=== PATIENT | male | born 1980 | race Caucasian/White ===

== ENCOUNTER 2019-11-09 17:18 | Emergency (ER) | payer OTHER, SELFPAY ==
[2019-11-09 17:32] VITALS: BP 117/93; PULSE 96; RESP 20; TEMP 37.1; O2SAT 100
--- NOTE | 2019-11-09 18:04 | ED.GENADULT ---
HPI - General Adult General Chief complaint: Upper Respiratory Infection Stated complaint: sore throat/weak/cough Time Seen by Provider: 11/09/19 18:04 Source: patient and RN notes reviewed Mode of arrival: ambulatory Limitations: no limitations History of Present Illness HPI narrative: 38-year-old male presents with complaints of sore throat, fatigue, and nausea for 5-6 days. [place] and Ibuprofen, last 3 days ago without relief. No treatment today. Shantanu is concerned since his spouse was diagnosis with Influenza B 1 day ago. No high fevers, drooling, neck or throat swelling. Pain is bilateral. Hurts to swallow. No rhinorrhea. Nasal congestion. No voice change. Exacerbating factors consist of eating, drinking, and vapes. Nausea without vomiting or abdominal pain. Tolerating liquids well. Denies chills, dyspnea, difficulty swallowing, jaw pain, dental pain, facial pain, foreign body sensation, and rash. Remains active. Some parts of this dictation were generated by voice recognition software and may contain typographical and/or grammatical inaccuracies. Related Data Allergies Allergy/AdvReac Type Severity Reaction Status Date / Time No Known Allergies Allergy Verified 11/09/19 18:12 Review of Systems Review of Systems: Narrative: CONSTITUTIONAL: Denies fever, chills, sweats. Complains of fatigue. EYES: Denies visual changes, redness, discharge. ENT: Denies rhinorrhea, otalgia. Complains of sore throat, congestion. CARDIOVASCULAR: Denies chest pain, palpitations, edema. RESPIRATORY: Denies dyspnea, wheezing. Complains of dry cough. GASTROINTESTINAL: Denies abdominal pain, vomiting, diarrhea. Complains of nausea. GENITOURINARY: Denies dysuria, hematuria, abnormal discharge SKIN: Denies rash or itching. MUSCULOSKELETAL: Denies acute back pain, joint pain, or myalgia. NEUROLOGIC: Denies numbness or focal weakness. PSYCHIATRIC: Denies anxiety or depression All other systems reviewed and negative. [facility] Past Medical History Medical History (Updated 11/13/19 @ 00:04 by LESLY Boland) No significant past medical history Surgical History Surgical History (Updated 11/13/19 @ 00:04 by LESLY Boland) No significant past surgical history Social History Social History (Updated 11/13/19 @ 00:10 by CAMERON Boland Smoking status: Former smoker Tobacco type: e-cigarettes Comments At time of signature, agree with nurse past medical, surgical, social, and family history. There is no relevant family history pertinent to the presenting complaint. Exam Narrative: Exam Narrative: GENERAL: This is a well-nourished, well-developed patient, in no apparent distress. Speaks in full sentences without deficits and ambulates with steady gait without dyspnea. HEAD: normocephalic, atraumatic. EYES: PERRL. Sclera clear/white. Vision is grossly intact. EARS: External ears normal, auditory canals clear and without drainage, TMs normal without perforation. Hearing grossly intact. NOSE: External nose normal with no obvious nasal discharge, nares with moderate redness and enlarge turbinates, no rhinorrhea. Mouth: moist mucous membranes. THROAT: Mucous membranes moist, posterior pharynx with PND, mild erythema, no exudate, and normal tonsils, no drainage, no concern for Peritonsillar abscess. No drooling, trismus, or neck swelling. NECK: Neck supple, non-tender without lymphadenopathy, masses or thyromegaly. CARDIOVASCULAR: Regular rate and rhythm without murmurs, gallops, or rubs. RESPIRATORY: Clear to auscultation. Breath sounds equal bilaterally. No wheezes, rales, or rhonchi. GASTROINTESTINAL: Abdomen soft, non-tender, nondistended. Bowel sounds are active. No hepato-splenomegaly, or palpable masses. No guarding. SKIN: warm, intact with no suspicious lesions or rash, good texture and turgor. NEURO: awake, alert, and oriented to person, place and time. There were no obvious focal neurolo
== END 2019-11-09 18:23 | disposition home or self-care (01) ==
PROVIDERS: Emergency Provider Nurse Practitioner Family
DX: J02.9 Acute pharyngitis, unspecified (principal); F17.200 Nicotine dependence, unspecified, uncomplicated
CPT/HCPCS: 87880; 99203; G0463

== ENCOUNTER 2019-11-17 17:15 | Emergency (ER) | payer OTHER, SELFPAY ==
[2019-11-17 17:28] VITALS: BP 132/86; PULSE 97; RESP 18; TEMP 37; O2SAT 100
--- NOTE | 2019-11-17 17:36 | ED.URI ---
HPI - URI/Sore Throat General Chief Complaint: Upper Respiratory Infection Stated Complaint: fast weight loss/cough Time Seen by Provider: 11/17/19 17:36 Source: patient and RN notes reviewed History of Present Illness HPI Narrative: Patient is a 38-year-old male that presents the urgent care with complaints of weight loss and cough. Patient states he was diagnosed with strep on November 09 and has lost 15 pounds in the last 2 weeks. Patient states that he has not been eating and drinking 2 hours before and after the medication. Patient states he has been very fatigued but also reports of having loss of appetite and not eating well. Patient states he does have bouts of dizziness from laying to sitting/standing. Patient states that he saw his PCP the Thursday prior to his strep diagnosis and they did no testing at that time. Patient states that the weight loss started prior to the strep diagnosis. Patient reports of pushing fluids and does have days where he feels better . Patient appears very anxious with a flat affect. No other acute complaints. No acute distress noted. Patient read the plan of care. Related Data Allergies Allergy/AdvReac Type Severity Reaction Status Date / Time No Known Allergies Allergy Verified 11/17/19 17:34 Review of Systems Review of Systems: Narrative: CONSTITUTIONAL: Denies fever, chills, or sweats. Reports of weight loss and fatigue EYES: Denies visual changes, redness, or discharge. ENT: Denies rhinorrhea, congestion, sore throat, or otalgia. CARDIOVASCULAR: Denies chest pain, palpitations, or edema. RESPIRATORY: Reports of nonproductive cough without dyspnea GASTROINTESTINAL: Reports of intermittent nausea with some abdominal discomfort at times GENITOURINARY: Denies dysuria or hematuria. SKIN: Denies rash or itching. MUSCULOSKELETAL: Denies back pain, joint pain, or myalgia. NEUROLOGIC: Denies headache, numbness, or weakness. Reports of intermittent dizziness All other systems reviewed are negative, except as documented in HPI. [facility] Past Medical History Medical History (Updated 11/17/19 @ 18:25 by LESLY Wagner) No significant past medical history Surgical History Surgical History (Updated 11/13/19 @ 00:04 by LESLY Boland) No significant past surgical history Social History Social History (Updated 11/13/19 @ 00:10 by LESLY Boland) Smoking status: Former smoker Tobacco type: e-cigarettes Comments At the time of my signature, I reviewed and agree with the nursing past medical, surgical, social, and family history. There is no relevant family history pertinent to the patient complaint. Exam Narrative: Exam Narrative: GENERAL: This is a well-nourished, well-developed patient, in no apparent distress. HEAD: normocephalic, atraumatic. EYES: PERRL. Sclera clear/white. Vision is grossly intact. EARS: External ears normal, auditory canals clear and without drainage, bilateral cerumen noted, unable to visualize left TM due to cerumen, right TM normal without perforation. Hearing grossly intact. NOSE: External nose normal with no obvious nasal discharge, nares without redness, no rhinorrhea. THROAT: Mucous membranes moist, mild erythema of the posterior oropharynx without exudate or ulceration. NECK: Neck supple, non-tender without lymphadenopathy CARDIOVASCULAR: Regular rate and rhythm without murmurs, gallops, or rubs. RESPIRATORY: Clear to auscultation. Breath sounds equal bilaterally. No wheezes, rales, or rhonchi. Gastrointestinal: Mild diffuse tenderness. Bowel sounds within normal limits. No splenomegaly palpated SKIN: warm, intact with no suspicious lesions or rash, good texture and turgor. NEURO: awake, alert, and oriented to person, place and time. There were no obvious focal neurologic abnormalities. EXTREMITIES: No clubbing, cyanosis, or edema. Course Vital Signs Vital signs: Vital Signs Temperature 98.6 F 11/17/19 17:28 Pulse Rate 9
[2019-11-17 17:52] LABS: Glucose Point of Care 90 (65-105)
== END 2019-11-17 18:33 | disposition home or self-care (01) ==
PROVIDERS: Emergency Provider Nurse Practitioner Family
DX: F41.8 Other specified anxiety disorders (principal); R63.4 Abnormal weight loss; Z87.891 Personal history of nicotine dependence
CPT/HCPCS: 82948; 86308; 87081; 87880; 99213; G0463

== ENCOUNTER 2019-11-20 18:30 | Emergency (ER) | payer OTHER, SELFPAY ==
[2019-11-20 18:32] VITALS: BP 136/90; PULSE 98; RESP 20; TEMP 36.9; O2SAT 100
--- NOTE | 2019-11-20 18:53 | ED.GENADULT ---
HPI - General Adult General Chief complaint: Unspecified Stated complaint: feeling unwell for 3 weeks,weight loss Time Seen by Provider: 11/20/19 18:46 Source: patient and RN notes reviewed Mode of arrival: other Limitations: no limitations History of Present Illness HPI narrative: Pt is a 38 y/o male who presents to the ED with c/o feeling unwell for the past three weeks. Pt notes that he went to get a massage with a happy ending while in [place], [place]. He notes that the masseuse only used her hand only. He notes that her hand brushed over his penis. Pt states that he did have an erection and did not ejaculate. Pt denies vaginal, anal, and oral intercourse with this therapist or anyone other than his . Pt notes that he began to have penile burning sensations and thought he had Herpes, but the tests were negative. He never had any lesions on his penis. Pt was started on Escitalopram and took the medication for three days. Pt notes that this was not his first massage with a happy ending. His last was massage was in February 2019. He notes that he had lesions on his back and he began to feel unwell after the massage. He states that his sx after the first massage did not last as long as his sx currently. He notes that he went to his PCP for additional blood and urine tests that all came back negative. He was recently dx with Strep and was prescribed Penicillin. He notes that he finished the course. Pt has a hx of anxiety, but he denies his anxiety causing his sx. He notes that he has a hx of dermatitis on his genital area. Pt also reports dizziness, cough, uneasy, fluid in right ear, poor appetite, nausea, vomiting, tongue thickness with white spots, and weight loss, but denies a fever, rash, testicle pain, dysuria, and penile discharge. MD complaint: Feeling Unwell Onset (ago): week(s) (3) Pain Consistency: other (none) Relieving factors: none Associated symptoms: cough, loss of appetite, nausea/vomiting and other ( dizziness, uneasy, fluid in right ear, tongue thickness with white spots, weight loss) Related Data Allergies Allergy/AdvReac Type Severity Reaction Status Date / Time No Known Allergies Allergy Verified 11/17/19 17:34 Review of Systems Review of Systems: Narrative: CONSTITUTIONAL: Reports feeling uneasy, poor appetite, and weight loss. Denies fever. ENT: Reports fluid in right ear, tongue thickness with white spots RESPIRATORY: Reports cough GASTROINTESTINAL: Reports nausea, vomiting, GENITOURINARY: Denies testicle pain, penile discharge, and dysuria. SKIN: Denies rash. NEUROLOGIC: Reports dizziness All systems reviewed & are unremarkable except as noted in HPI and below PMFSH Past Medical History Medical History (Updated 11/20/19 @ 21:18 by Elizabeth Schrader MD) No significant past medical history Surgical History Surgical History (Updated 11/13/19 @ 00:04 by LESLY Boland) No significant past surgical history Social History Social History (Updated 11/13/19 @ 00:10 by LESLY Boland) Smoking status: Former smoker Tobacco type: e-cigarettes Exam Narrative: Exam Narrative: GENERAL: Well-appearing, well-nourished, and in no acute distress. HEAD: Normocephalic, atraumatic. EYES: PERRLA and EOMI. ENT: Nares clear, no rhinorrhea or epistaxis. Mucous membranes moist. Tongue normal. No exudate, sores, lesions, or erythema. Left ear clear. Narrow ear canals. Right ear infection with erythema. No perforation. NECK: Supple. CHEST: Clear to auscultation. No respiratory distress. HEART: Regular rate and rhythm. No murmur heard. Normal peripheral pulses. ABDOMEN: Soft, nontender, nondistended, normal active bowel sounds. No lymph nodes present. GENITOURINARY: Cirumcised. No lesions on penis. No erythema. No hernia. No inguinal lympadenopathy. No testicular tenderness. EXTREMITIES: Normal range of motion. No edema. BACK: No lesions. SKIN: Warm, dry, no rash. NEURO: No focal deficits. Alert
[2019-11-20 19:51] LABS: Hematocrit 44.7 % (42.0-52.0); Hemoglobin 14.8 g/dL (14.0-18.0); Mean Corpuscular HGB Conc 33.1 g/dl (32-36); Mean Corpuscular Hemoglobin 28.8 pg (26-34); Mean Platelet Volume 10.1 fl (7.4-10.4); Platelet Count Result 227 k/mm3 (150-375); Red Blood Count 5.14 M/mm3 (4.6-6.20); Red Cell Distribution Width 12.7 % (11.5-14.5); White Blood Count 7.1 K/mm3 (4.5-10.0)
[2019-11-20 19:54] LABS: Add Urine Microscopic? NO; Appearance Urine Clear (Clear); Bilirubin Urine Negative (Negative); Blood Urine Negative (Negative); Color Urine Colorless (Yellow); Glucose Urine UA Negative (Negative); Ketones Urine Negative (Negative); Leukocyte Esterase Ur Negative LEU/UL (Negative); Nitrate Urine Negative (Negative); Protein Urine Negative (Negative); Specific Grav Ur 1.005 (1.001-1.035); Urobilinogen Urine Negative mg/dL (<2.0)
[2019-11-20 19:57] LABS: Mucus Urine Rare /lpf; Squamous Epithelial Cell Urine Rare /hpf (Few); WBC Urine 0-3 /hpf
[2019-11-20 20:02] LABS: Alanine Aminotransferase 24 U/L (4-50); Albumin Level 4.7 g/dL (3.5-5.1); Alkaline Phosphatase 44 U/L (38-126); Aspartate Amino Transferase 21 U/L (17-59); Bilirubin,Total 0.6 mg/dL (0.2-1.3); Blood Urea Nitrogen 13 mg/dL (9-20); Calcium 9.9 mg/dL (8.4-10.2); Carbon Dioxide 26 mmol/L (22-30); Chloride 99 mmol/L (98-107); Estimated CRCL calculation 132 ml/min; Estimated Glomerular Filt Rate > 60; Glucose 120 mg/dL (75-110); Lipase 335 U/L (23-300); Potassium 3.9 mmol/L (3.4-5.0); Sodium 138 mmol/L (137-145)
[2019-11-20 20:31] LABS: Eosinophils Absolute Manual 0.14 K/mm3 (0.02-0.5); Eosinophils Percent Manual 2 % (0-4); Lymphocytes Absolute Manual 1.84 K/mm3 (1.1-4.5); Lymphocytes Percent Manual 26 % (18-44); Monocytes Absolute Manual 0.21 K/mm3 (0.1-0.90); Monocytes Percent Manual 3 % (3-9); Neutrophils Percent Manual 69 % (46-73); Platelet Estimate Adequate (Adequate); Total Cells Counted 100
[2019-11-20 20:33] LABS: Hepatitis B Surface Antigen Negative (Negative)
[2019-11-20 20:39] LABS: HAV RESULT Negative (Negative); Hepatitis B Core IgM Result Negative (Negative)
[2019-11-20 20:50] LABS: HIV 1/2 Ab P24 Ag Result Negative (Negative); Hepatitis C Virus Antibody Negative (Negative)
[2019-11-20 21:09] LABS: Monoscreen Negative (Negative); Negative Monotest Control Negative (Negative); Positive Monotest Control Positive (Positive)
[2019-11-20 21:29] VITALS: BP 129/88; PULSE 89; RESP 16; O2SAT 98
== END 2019-11-20 21:31 | disposition home or self-care (01) ==
PROVIDERS: Emergency Provider Emergency Medicine
DX: R53.81 Other malaise (principal); R68.2 Dry mouth, unspecified
CPT/HCPCS: 36415; 80053; 80074; 81003; 83690; 85025; 86308; 86703; 87491; 87591; 99283; G0432

== ENCOUNTER 2022-01-11 10:03 | Emergency (ER) | payer OTHER, SELFPAY ==
--- NOTE | 2022-01-11 10:11 | ED.SKABFB ---
HPI - Skin/Abscess/Foreign Bdy General Chief complaint: Skin/Abscess/Foreign Body Stated complaint: rash on back Time Seen by Provider: 01/11/22 10:25 Source: patient Mode of arrival: ambulatory Limitations: no limitations History of Present Illness HPI narrative: Mr. Bazzi is a 41-year-old male patient presenting to the clinic today with complaints of a rash on his back x1 days. He reports that his back has been more itchy than normal and last night he noticed he had a rash all over his back. He reports he often has a lot of dry skin and uses what he thinks is Aquaphor lotion for this that was prescribed by his provider. He denies any pain or burning to the rash. Reports that the rash is very itchy and dry. No changes in environment according to the patient. States that no new changes in soaps, shampoos, detergents, food, or outdoor activities. He has recently started Norvasc and hydroxychloroquine within the last few months. Related Data Home Medications Medication Instructions Recorded Confirmed amlodipine 5 mg PO DAILY 01/11/22 01/11/22 hydroxychloroquine 200 mg PO BID 01/11/22 01/11/22 omeprazole [Prilosec] 20 mg PO DAILY 01/11/22 01/11/22 sertraline 100 mg PO DAILY 01/11/22 01/11/22 Allergies Allergy/AdvReac Type Severity Reaction Status Date / Time No Known Allergies Allergy Verified 01/11/22 10:31 Review of Systems Review of Systems: Pertinent positives per HPI. Patient denies any fever, chills, headache, visual changes, dizziness, cough, runny nose, sore throat, shortness of breath, chest pain, palpitations, nausea, vomiting, diarrhea, constipation, abdominal pain, or any urinary issues. [facility] Past Medical History Medical History No significant past medical history Surgical History Surgical History No significant past surgical history Social History Social History Smoking status: Former smoker Tobacco type: e-cigarettes/vaping Comments At the time of my signature, I reviewed and agree with the nursing past medical, surgical, social, and family history. There is no relevant family history pertinent to the patient complaint. Exam Narrative: General: Well-developed, well nourished, in no apparent distress Head: Normocephalic, atraumatic Cardio: Regular rate and rhythm, s1 and s2 normal, no murmur appreciated. Resp: Clear to auscultation bilaterally, no rhonchi, rales, wheezing or rubs. Integumentary: [place], warm, and dry, intact without lesion, red macular mildly raised scaly itchy rash scattered across back and sides. Course Course Emergency Course: Portions of this record may have been created with voice recognition software. Level of Care: Express Care Visit Vital Signs Vital signs: Vital signs reviewed MDM - Skin/Abscess/Foreign Bdy MDM Narrative Medical decision making narrative: At the time of assessment patient was resting comfortably on the exam table. The rash to his back appears macular, red, raised, scaly, and itchy. There is no pain, weeping, or tinea appearance. I suspect dermatitis likely from weather changes and dryness of skin. Discussed supportive measures by using Aquaphor lotion as well as taking a round of prednisone and using triamcinolone as prescribed. Differential Diagnosis Differential diagnosis: Likely viral exanthem, dermatophytosis, urticaria, herpes zoster, allergic reaction to drug, eczema, insect bites and contact dermatitis Discharge Plan Discharge Clinical Impression: Dermatitis Patient Disposition: Home, Self-Care Condition: Stable Instructions: Eczema (ED) Additional Instructions: Moisturize skin twice a day as discussed with Aquaphor, Lubriderm, or Cetaphil lotions Take baths or showers every other day to avoid drying out skin May take Benadryl as need
[2022-01-11 10:21] VITALS: BP 128/90; PULSE 97; RESP 18; TEMP 36.5; O2SAT 100
== END 2022-01-11 10:47 | disposition home or self-care (01) ==
PROVIDERS: Emergency Provider Nurse Practitioner Family
DX: L30.9 Dermatitis, unspecified (principal); K21.9 Gastro-esophageal reflux disease without esophagitis; F41.9 Anxiety disorder, unspecified; F32.A Depression, unspecified
CPT/HCPCS: 99213; G0463

== ENCOUNTER 2022-07-26 12:51 | Emergency (ER) | payer OTHER, SELFPAY ==
[2022-07-26 13:15] VITALS: BP 135/95; PULSE 98; RESP 20; TEMP 36.9; O2SAT 99
--- NOTE | 2022-07-26 13:30 | ED.URI ---
HPI - URI/Sore Throat General Chief Complaint: Upper Respiratory Infection Stated Complaint: sob Time Seen by Provider: 07/26/22 13:30 Source: patient, RN notes reviewed and old records reviewed Mode of arrival: ambulatory Limitations: no limitations History of Present Illness HPI Narrative: 41-year-old male who presents to [facility] care with 3-day history of frequent diarrhea stools, nausea, dizziness, dry cough which is worse at night with some shortness of breath. Patient states he has been COVID vaccinated with booster and he did receive a flu shot yesterday. Patient reports ill contacts with children being ill in the past 2 weeks. Patient reports that he has not noted any fevers. Patient reports he has been eating but nausea has decreased his appetite. MD elicited complaint: cough (some shortness of breath.) and other (nausea and diarrhea) Onset (ago): day(s) (3) Able to tolerate fluids by mouth: Yes Treatments prior to arrival: other (collette seljoespher cold medication) Related Data Home Medications Medication Instructions Recorded Confirmed hydroxychloroquine 200 mg tablet 200 mg PO BID 01/11/22 07/26/22 sertraline 100 mg tablet 100 mg PO DAILY 01/11/22 07/26/22 pantoprazole 40 mg tablet,delayed 40 mg PO QAM 07/26/22 07/26/22 release (Protonix) Allergies Allergy/AdvReac Type Severity Reaction Status Date / Time No Known Allergies Allergy Verified 07/26/22 13:25 Review of Systems Review of Systems: CONSTITUTIONAL: Reports malaise,no chills, sweats, or fever. EYES: Denies visual changes, redness, or discharge. ENT: Reports rhinorrhea, congestion,no sinus pain, otalgia or sore throat. CARDIOVASCULAR: Denies chest pain, palpitations, or edema. RESPIRATORY: Reports cough with some dyspnea with exertion and states some dizziness. GASTROINTESTINAL: Denies abdominal pain,positive for nausea,no vomiting, positive diarrhea SKIN: Denies rash or itching. MUSCULOSKELETAL: Denies myalgia. NEUROLOGIC: Denies headache. All systems reviewed & are unremarkable except as noted in HPI and below PMFSH Past Medical History Medical History (Updated 07/27/22 @ 19:03 by Elizabeth Villafana NP) Anxiety with depression Eczema GERD (gastroesophageal reflux disease) Surgical History Surgical History No significant past surgical history Social History Social History (Updated 07/27/22 @ 19:04 by Elizabeth Villafana NP) Smoking status: Former smoker Alcohol intake: current Alcohol use details: social Substance use type: does not use Living arrangements: with family Gender identity (if verbalized by the patient): Male Comments At time of signature, agree with nursing past medical, surgical, social and family history. There is no relevant family history pertinent to the presenting complaint Exam Narrative: GENERAL: Well-appearing, well-nourished, and in no acute distress. HEAD: Normocephalic EYES: PERRLA, conjunctivae clear ENT: Nares clear, turbinates edematous and erythematous, clear discharge. Mucous membranes moist. TM pearly [place] with dull light reflex bilaterally; no tragal tenderness. Oropharynx pink without lesions. Tonsils not enlarged and without exudate, no drooling, no hoarseness, no trismus, uvula midline. NECK: Supple. No lymphadenopathy CHEST: Clear to auscultation, breath sounds equal. No wheezing, rhonchi, rales, or stridor. No respiratory distress, speaks in full sentences. dry cough SAO2 99% on room air HEART: Regular rate and rhythm. No murmur heard. ABDOMEN: soft and nontender to palpation, no McBurney point tenderness, normal bowel sounds in all quadrants.diarrhea episodes with no noted blood. SKIN: Warm, dry, no rash. NEURO: Alert and oriented x3. PSYCH: Normal mood and affect Course Course Emergency Course: Patient is aware of diagnosis, understands and agrees to treatment plan.? Anticipatory guidance g
== END 2022-07-26 14:00 | disposition home or self-care (01) ==
PROVIDERS: Emergency Provider Registered Nurse
DX: B34.9 Viral infection, unspecified (principal); Z20.822 Contact with and (suspected) exposure to COVID-19; K21.9 Gastro-esophageal reflux disease without esophagitis; Z87.891 Personal history of nicotine dependence; F41.9 Anxiety disorder, unspecified; F32.A Depression, unspecified
CPT/HCPCS: 87081; 87426; 87804; 87880; 99213; C9803; G0463